=== PATIENT | female | born 1965 | race Two or more races ===

== ENCOUNTER → 2023-11-27 | Day surgery (SDC) | payer BC ==
[~2023-11-27] MED LIST: HYDROmorphone (PF) 1 MG/ML ONE; HYDROmorphone 0.5 MG/0.5 ML SYRINGE IVP PRN; LIDOCAINE 1% (10MG/ML) FOR IV START INTRADERMA PRN; LIDOCAINE 1% INJ 10MG/ML (20 ML MDV) ONE; MIDAZOLAM 2 MG/2 ML VIAL IV PRN; MIDAZOLAM 2 MG/2 ML VIAL ONE; ONDANSETRON 4 MG/2 ML VIAL IVP PRN; PHENYLEPHRINE-0.9% NACL SYG 1,000 MCG/10 ML SYRINGE ONE; PROPOFOL 10 MG/ML 20 ML VIAL IV ONE; Pre Op ABX Message 1 EACH MISC MISCELLANE ONE; ceFAZolin 1 GM/50 ML BAG (PMX) ONE; ePHEDrine 50 MG/ML 1 ML VIAL ONE; fentaNYL (PF) 50 MCG/ML 2 ML AMP IVP PRN; fentaNYL (PF) 50 MCG/ML 2 ML AMP ONE
[2023-11-27 13:32] VITALS: TEMP 97.1
--- NOTE | 2023-11-27 13:46 | P.GSHP ---
History of Present Illness H&P Date: 11/27/23 CHIEF COMPLAINT: Right shoulder mass HISTORY OF PRESENT ILLNESS: The patient is a 57-year-old female presents with intramuscular right shoulder mass over 6 cm with increased tenderness fullness. Tenderness and pain present for over 6 months. Patient presents for excision PAST MEDICAL HISTORY: Please see list. PAST SURGICAL HISTORY: Please see list. MEDICATIONS: Please see list. ALLERGIES: Please see list. SOCIAL HISTORY: No illicit drug use FAMILY HISTORY: No reports of Crohn disease or ulcerative colitis. REVIEW OF ORGAN SYSTEMS: CONSTITUTIONAL: No reports of fevers or chills. GI: Denies any blood in stools or constipation. PHYSICAL EXAM: VITAL SIGNS: Stable Musculoskeletal: No clubbing cyanosis GENERAL: Well developed and in no acute distress. Pleasant. HEENT: No sclera icterus. Extraocular movements grossly intact. Moist buccal mucosa. Head is atraumatic, normocephalic. Hears conversational speech. No nasal drainage. NECK: Supple without lymphadenopathy. No JV distention. CHEST: Non-labored respirations and equal bilateral excursions. CARDIOVASCULAR: Regular rate and rhythm. Palpable 2+ radial pulses. ABDOMEN: Soft. Non-tender. Nondistended. NEUROLOGIC: No focal or lateralizing signs. PSYCH: Appropriate affect. Alert and oriented to person, place and time. SKIN: Right shoulder 6 cm lipoma ASSESSMENT: 1. Right shoulder 6 cm lipoma PLAN: 1. Will proceed of excision of intramuscular right shoulder 6 cm lipoma benefits and risks described. 2. CBC and CMP 3. Preoperative antibiotics Past Medical History Past Medical History: Hypertension History of Any Multi-Drug Resistant Organisms: None Reported Past Surgical History: Tubal Ligation Additional Past Surgical History / Comment(s): colonoscopy, bx rt breast Past Anesthesia/Blood Transfusion Reactions: No Reported Reaction Smoking Status: Never smoker - Past Family History Mother Family Medical History: Myocardial Infarction ([place]) Medications and Allergies Home Medications Medication Instructions Recorded Confirmed Type Losartan Potassium 50 mg PO DAILY 11/21/23 11/27/23 History Allergies Allergy/AdvReac Type Severity Reaction Status Date / Time No Known Allergies Allergy Verified 11/27/23 13:28 Surgical - Exam Vital Signs Temp Pulse Resp BP Pulse Ox 97.1 F L 68 18 124/62 99 11/27/23 13:31 11/27/23 13:31 11/27/23 13:31 11/27/23 13:31 11/27/23 13:31
[2023-11-27] MEDS: IV FLUID CONTINUATION 1,000 ML IV ONE (13:47)
[2023-11-27] MEDS: LACTATED RINGERS 1,000 ML IV SCH (13:48)
[2023-11-27] MEDS: ONDANSETRON 4 MG/2 ML VIAL IVP ONE (13:53)
[2023-11-27] MEDS: ACETAMINOPHEN TAB 500 MG TAB PO PRN (13:54)
[2023-11-27] MEDS: HEPARIN SODIUM,PORCINE 5,000 UNIT/ML 1 ML VIAL SQ PRN (13:54)
[2023-11-27] MEDS: DEXAMETHASONE SOD PHOSPHATE 4 MG/ML 1 ML VIAL IV ONE (13:54)
--- NOTE | 2023-11-27 15:43 | P.PN ---
Progress Note - Text Progress Note Date: 11/27/23 To whom it may concern: Kristian Cuevas was in the hospital in support of his 's surgery on 11/27/2023. Please excuse his absence from work today. Regards, Mary Lou Tejada MD, FACS
[2023-11-27] MEDS: SODIUM CHLORIDE 0.9% 50 ML with ceFAZolin 2,000 MG IV ONE (15:50)
[2023-11-27] MEDS: LIDOCAINE 2%-EPI 1:100,000 20 ML VIAL SQ ONE (16:19)
[2023-11-27 17:45] VITALS: RESP 16
--- NOTE | 2023-11-27 18:03 | P.OP ---
Date of Procedure: 11/27/23 Description of Procedure: SURGEON: MARY LOU TEJADA MD ALL PURPOSE CLERK: NONE. PREOPERATIVE DIAGNOSES: 1. Right shoulder intramuscular lipoma over 5 cm POSTOPERATIVE DIAGNOSES: 1. Right shoulder subfascial lipoma to the head of humerus, 15 x 15 cm OPERATION: 1. Excision of complex anterior right shoulder subfascial lipoma to the bone, 15 x 15 cm 2. Intermediate closure of right shoulder incision 11 cm ANESTHESIA: LMA with IV sedation ESTIMATED BLOOD LOSS: 75 mL. SPECIMENS REMOVED: 1. Anterior right shoulder subfascial lipoma interdigitating superior head of humerus, 15 x 15 cm COMPLICATIONS: None. FINDINGS: 1. Anterior right shoulder subfascial lipoma interdigitating superior head of humerus, 15 x 15 cm INDICATIONS: The patient is a 57-year-old female who presents pain and swelling along the right shoulder. Patient was previously assessed by orthopedics including MRI obtained demonstrating lipoma. Surgical options, including excision was discussed. Benefits and risks were described. Informed consent was obtained. DESCRIPTION OF PROCEDURE: Patient was brought into the operating room, laid in left lateral decubitus position. After adequate IV sedation, the left forearm was prepped and draped in standard sterile fashion using ChloraPrep. A timeout protocol was confirmed with the surgical team regarding patient's name including procedures to be performed. Preoperative medications was administered. Next, a local field block was administered. The left forearm was measured using a ruler with borders marked with indelible marker. A transverse of 6 cm incision was made into the dermis followed by circumferential dissection using electro-Bovie cautery into the subcutaneous tissue of the left lateral forearm. Hemostasis was checked with electrocautery. The wound was closed in multiple layers including 0 Vicryl for the deep subcutaneous tissue. The skin was closed using 3-0 Monocryl. The skin was cleansed. Exofin tape was placed. Optifoam dressing was placed. At the end of the procedure, needle, sponge, and instrument count had been verified correct by the surgical scrub technologist. The patient was taken to the postanesthesia care unit in stable condition. Plan - Discharge Summary Discharge Rx Participant: No New Discharge Prescriptions: New Ibuprofen [Motrin] 600 mg PO Q8HR PRN #30 tab PRN Reason: Pain Acetaminophen Tab [Tylenol Tab] 1,000 mg PO Q6HR PRN #30 tablet PRN Reason: Pain Continue Losartan Potassium 50 mg PO DAILY Discharge Medication List Losartan Potassium 50 mg PO DAILY 11/21/23 [History] Acetaminophen Tab [Tylenol Tab] 1,000 mg PO Q6HR PRN #30 tablet 11/27/23 [Rx] Ibuprofen [Motrin] 600 mg PO Q8HR PRN #30 tab 11/27/23 [Rx] Follow up Appointment(s)/Referral(s): Mary Lou Tejada MD [STAFF PHYSICIAN] - 12/02/23 3:15 pm Patient Instructions/Handouts: Lipoma Removal (GEN) Activity/Diet/Wound Care/Special Instructions: DO NOT REMOVE DRESSING. May shower. No lifting over 10 pounds for 2 weeks. No bath tub soaks for two weeks until Dec 10 Diet as tolerated. Use Tylenol and ibuprofen or Aleve scheduled for the next 24-48 hours for best pain relief. Use ice along incisions for today to prevent swelling. Discharge Disposition: HOME SELF-CARE
[2023-11-27 18:57] VITALS: BP 129/73; PULSE 97
== END | disposition home or self-care (01) ==
LOC: OR 12:58
PROVIDERS: ATTEND Surgery Plastic and Reconstructive Surgery
DX: D17.9 Benign lipomatous neoplasm, unspecified (principal)
CPT/HCPCS: 88304